=== PATIENT | male | born 1950 | race Caucasian/White ===

== ENCOUNTER 2019-10-26 23:14 | Inpatient (IN) | payer MEDICARE, OTHER ==
[~2019-10-26] VITALS: Ht 185.4 cm; Wt 100.2 kg
--- NOTE | 2019-10-26 23:30 | NUR ---
GPS ADMISSION NOTE: [facility] PT. ARRIVED AT 2330 VIA [facility] W/ 2 EMT ESCORTS. PT. ADMITTED ON A 5150 HOLD FOR DTS AND GD. PER HOLD PATIENT HAS BEEN ACTING BIZARRE AND AGGRESSIVE TOWARDS MEDICAL STAFF, CONFUSED AT TIMES, NOT MAKING ANY SENSE, HAS NO REGARD OF HIS OWN PERSONAL SAFETY, AND RAMBLING ABOUT AND DYING. 5150 WAS REVIEWED AND DOCUMENTATION IN 5150 HOLD APPEAR TO REFLECT PATIENT. UPON FACE TO FACE ASSESSMENT, PT. WAS CONFUSED, RAMBLING, AND NOT MAKING ANY SENSE. NEEDS REDIRECTION. PATIENT IS CURRENTLY SLEEPING IN BED, NO COMPLAINTS OF PAIN, NO DISTRESS NOTED. PT. BREATHING IS UNLABORED WITH EQUAL RISE AND FALL OF CHEST. PT. IS A/O X2 ON ROOM AIR. NO NEEDS AT THIS TIME. DENIES SI/HI. PATIENT SIGNED PAPERWORK AND WAS ADVISED OF HOLD AND PATIENT RIGHTS BOOKLET GIVEN. UNDER PSYCHIATRIC CARE OF WILL AND MEDICAL CARE OF GURJIT. BELONGINGS WERE INVENTORIED AND CHECKED FOR CONTRABAND. ALL CONTRABAND REMOVED. SKIN ASSESSMENT AND MRSA COMPLETED. PT. EDUCATED ON USE OF CALL MONTOYA. SIDE RAILS UP X2 FOR SAFETY. BED LOCKED, LOW POSITION. WILL CONTINUE TO MONITOR PT. FOR SAFETY AND BEHAVIOR.
[2019-10-27] MEDS ORDERED: TEMAZEPAM 7.5 MG CAPSULE PO PRN
[2019-10-27] MEDS ORDERED: MAG HYDROX/AL HYDROX/SIMETH 30 ML UDC PO PRN
[2019-10-27] MEDS ORDERED: ACETAMINOPHEN 325 MG TABLET PO PRN
[2019-10-27] MEDS ORDERED: MAGNESIUM HYDROXIDE 30 ML UDC PO PRN
[2019-10-27] MEDS ORDERED: BLOOD SUGAR DIAGNOSTIC 1 EACH STRIP IN ONE
[2019-10-27] MEDS ORDERED: LORAZEPAM 0.5 MG TABLET PO PRN
[2019-10-27] MEDS ORDERED: AMLO10TA7 PO (00:13)
[2019-10-27] MEDS ORDERED: METO50TA16 PO (00:13)
[2019-10-27] MEDS ORDERED: ENOX40DI SQ (00:13)
[2019-10-27] MEDS ORDERED: ONDA4TAB5 PO (00:13)
[2019-10-27] MEDS ORDERED: VALS320T2 PO (00:13)
[2019-10-27] MEDS ORDERED: IPRA0.2S49 NEB (00:13)
[2019-10-27] MEDS ORDERED: DOCU100C36 PO (00:13)
[2019-10-27] MEDS ORDERED: GABA-532 PO (00:13)
[2019-10-27] MEDS ORDERED: NAPH1POW3 PO (00:13)
[2019-10-27] MEDS ORDERED: SENN-18 PO (00:13)
[2019-10-27] MEDS ORDERED: ARIP20TA4 PO (00:13)
[2019-10-27] MEDS ORDERED: FAMO20TA8 PO (00:13)
[2019-10-27] MEDS ORDERED: CLOP75TA15 PO (00:13)
[2019-10-27] MEDS ORDERED: ATOR80TA PO (00:13)
[2019-10-27] MEDS ORDERED: HYDR-4354 PO (00:13)
[2019-10-27 02:21] VITALS: BP 129/82
--- NOTE | 2019-10-27 06:01 | NUR ---
GPS RN NOTE CALLED [facility] @ [phone] FOR MED RECON AND SAID THEY WILL PAGE DR. CAGLE. WAITING FOR HIS CALL
--- NOTE | 2019-10-27 06:41 | NUR ---
GPS RN NOTE: DR. CAGLE CALLED UNIT AND ASKED HIM TO HAVE THE MEDICATION RECONCILED.
[2019-10-27 07:23] LABS: CHOLESTEROL 81 mg/dL (<200); HDL CHOLESTEROL 35 mg/dL (40-60); LDL 34 mg/dL (0-99); TRIGLYCERIDES 48 mg/dL (30-150)
[2019-10-27 07:30] LABS: ALBUMIN 3.7 g/dL (3.4-5.0); BILIRUBIN,TOTAL 0.6 mg/dL (0.2-1.0); CALCIUM, SERUM 9.6 mg/dL (8.5-10.1); CREATININE 1.1 mg/dL (0.6-1.3); POTASSIUM 3.3 mmol/L (3.5-5.1); TOTAL PROTEIN, SERUM 7.5 g/dL (6.4-8.2)
[2019-10-27 08:00] VITALS: BP 140/65
[2019-10-27] MEDS: CLOPIDOGREL BISULFATE 75 MG TABLET PO SCH (10:39)
[2019-10-27] MEDS: AMLODIPINE BESYLATE 10 MG TABLET PO SCH (10:39)
[2019-10-27] MEDS ORDERED: ONDANSETRON 4 MG TAB.RAPDIS PO PRN (11:00)
[2019-10-27] MEDS: POTASSIUM CHLORIDE 20 MEQ TAB.PRT.SR PO ONE ×2 (11:23→11:33)
--- NOTE | 2019-10-27 11:33 | NUR ---
RN NOTE: PT REFUSED PO POTASSIUM REPLACEMENT. EDUCATED PT ON IMPORTANCE OF POTASSIUM FOR HIS HEART. PT CONT TO REFUSE X 3 WILL OFFER REPLACEMENT AT A LATER TIME.
[2019-10-27] MEDS: GABAPENTIN 100 MG CAPSULE PO SCH ×2 (12:08→17:16)
[2019-10-27] MEDS ORDERED: GABAPENTIN 300 MG CAPSULE PO SCH (13:00)
[2019-10-27] MEDS: IPRATROPIUM NEB FS 0.5 MG/2.5 ML AMPUL.NEB NEB SCH ×2 (15:42→21:04)
[2019-10-27 16:00] VITALS: BP 118/77
[2019-10-27] MEDS: DOCUSATE SODIUM 100 MG CAPSULE PO SCH (17:15)
[2019-10-27] MEDS: ARIPIPRAZOLE 5 MG TABLET PO SCH (17:15)
[2019-10-27] MEDS: SENNOSIDES 8.6 MG TABLET PO SCH (17:15)
[2019-10-27] MEDS: HYDROCODONE/APAP 10/325MG 1 EA TABLET PO SCH (17:17)
[2019-10-27] MEDS: FAMOTIDINE (20 MG) 20 MG TABLET PO SCH (17:17)
[2019-10-27] MEDS: METOPROLOL TARTRATE 50 MG TABLET PO SCH (17:18)
[2019-10-27 20:14] VITALS: BP 128/86
--- NOTE | 2019-10-27 20:47 | NUR ---
RN NOTES PATIENT COMPLAINING OF A MILD HEADACHE, REQUESTING MEDICATION. ADMINISTERED PRN PO TYLENOL 650mg ORDERED. WILL CONTINUE TO MONITOR PATIENT.
[2019-10-27] MEDS ORDERED: ATORVASTATIN 40 MG TABLET PO SCH (22:00)
[2019-10-28] MEDS: IPRATROPIUM NEB FS 0.5 MG/2.5 ML AMPUL.NEB NEB SCH ×4 (01:30→13:52)
[2019-10-28 08:00] VITALS: BP 132/76
[2019-10-28] MEDS: DOCUSATE SODIUM 100 MG CAPSULE PO SCH (08:13)
[2019-10-28] MEDS: METOPROLOL TARTRATE 50 MG TABLET PO SCH (08:14)
[2019-10-28] MEDS: HYDROCODONE/APAP 10/325MG 1 EA TABLET PO SCH (08:14)
[2019-10-28] MEDS: CLOPIDOGREL BISULFATE 75 MG TABLET PO SCH (08:15)
[2019-10-28] MEDS: AMLODIPINE BESYLATE 10 MG TABLET PO SCH (08:15)
[2019-10-28] MEDS: GABAPENTIN 100 MG CAPSULE PO SCH ×2 (08:15→12:17)
[2019-10-28] MEDS: FAMOTIDINE (20 MG) 20 MG TABLET PO SCH (08:16)
[2019-10-28] MEDS: ARIPIPRAZOLE 5 MG TABLET PO SCH (08:16)
[2019-10-28] MEDS: SENNOSIDES 8.6 MG TABLET PO SCH (08:16)
[2019-10-28] MEDS ORDERED: VALSARTAN 80 MG TABLET PO SCH (09:00)
--- NOTE | 2019-10-28 10:14 | NUR ---
FAMILY CONTACT: CARMELA contacted pts [place] [facility] [phone] for collateral information and discharge/treatment planning. Pt did not provide collateral information she stated she wanted pt discharged as soon as possible and stated that pt does not belong in a psych unit. Per medical report pt has been diagnosed with Schizophrenia in 1999 and per this is pts first psychiatric hospitalization. CARMELA stated she would consult with MD and call her back with an update.
--- NOTE | 2019-10-28 10:30 | NUR ---
INITIAL DISCHARGE PLAN: Pt will be discharged home [address] [place] [address]. Per [facility] [phone] she wishes for pt to be discharged as soon as possible. CARMELA will help form a safe and proper discharge in collaboration with .
--- NOTE | 2019-10-28 10:34 | NUR ---
PSYCHOSOCIAL NOTE: CARMELA and met with pt at bedside, pt is alert and oriented x2, to self and place. Pt appears confused and disoriented. Pt states he is in a hospital in [place] and that it is year 2017. Pt states that he wishes to go home and feels safe at home. Pt also states that he has been sleeping well and taking his medication. Pt is med complaint and appears with mumbled speech and confused thought content. Pt was placed on a psychiatric hold for danger to self and grave disability. Per psychiatric hold, pt began acting bizarre while at [facility] and began acting aggressive towards staff. Currently pt does not display bizarre or aggressive behavior. CARMELA and spoke with pts who states she wishes to pick pt up on this preset day. MD will initiate discharge and break pts 5150 hold due to pt not meeting criteria.
--- NOTE | 2019-10-28 10:53 | NUR ---
DISCHARGE NOTE: Pt will be discharged at 4:00pm via private vehicle home to [facility] [place] [address]. Pts [place] [facility] [phone] will pick pt up. Pts mood is calm and cooperative with congruent affect. Pt denied visual/auditory hallucinations and denied suicidal/homicidal ideation. Pt is alert and oriented x2, to self and place and is ambulatory. Pt is appropriately dressed and groomed. Pt denied drug/alcohol history or current use. Pt will follow up with Psychiatrist: Dr. Raúl Fischer Address: [address] [place] [address] On Monday11/04/19 at 11:00am. Clinicals were faxed to . Pt will also follow up with Chief Environmental Commitment Officer: Dr. Tristen Gilmore Address: [address] [facility] [address], [place] [address] . The multidisciplinary exit care form was done, printed, signed, and given to the patient.
[2019-10-28 16:00] VITALS: BP 100/56
--- NOTE | 2019-10-28 16:10 | NUR ---
CUSTOMER ASSOCIATE NOTE: 69 YEAR OLD MALE DISCHARGED POLY IN STABLE CONDITION. COMPLIANT WITH MEDICATIONS, COOPERATIVE WITH TREATMENT PLANS. PATIENT DENIES SI/HI AND INSTRUCTED TO GO TO THE CLOSEST ER IF DEVELOPING SI/HI. BEHAVIOR IMPROVED, PSYCHIATRIC TREATMENT PLANS MET, MEDICAL TREATMENT PLANS DEFERRED FOR CONTINUAL MONITORING. EDUCATED PT AND ABOUT AFTER CARE PLAN AND COPY PROVIDED. RETURNED PERSONAL BELONGINGS TO PATIENT. MEDICATIONS RECONCILED WITH LOLA KING NP AND DR. SOLIS PATIENT UNABLE TO SIGN DISCHARGE PAPERWORK DUE TO MENTAL STATUS. , LEIGH, SIGNED RESPONSIBILITY OF CARE FORM. WOUND PICTURES DOCUMENTED IN THE CHART. PT ID BAND REMOVED. PATIENT LEFT THE UNIT VIA WHEELCHAIR AT 1610.
== END 2019-10-28 16:10 | disposition home or self-care (01) | DRG 885 ==
LOC: GPS 23:14
PROVIDERS: ADMIT Psychiatry & Neurology Psychosomatic Medicine; ATTEND Nurse Practitioner Acute Care
DX: F25.9 Schizoaffective disorder, unspecified (principal); I11.0 Hypertensive heart disease with heart failure; G93.41 Metabolic encephalopathy; E87.6 Hypokalemia; G89.29 Other chronic pain; Z86.73 Personal history of transient ischemic attack (TIA), and cerebral infarction without residual deficits; E78.5 Hyperlipidemia, unspecified; E66.9 Obesity, unspecified; I50.9 Heart failure, unspecified; Z79.01 Long term (current) use of anticoagulants; Z79.899 Other long term (current) drug therapy; Z79.51 Long term (current) use of inhaled steroids; F29 Unspecified psychosis not due to a substance or known physiological condition; Z73.6 Limitation of activities due to disability; Z95.0 Presence of cardiac pacemaker; Z68.29 Body mass index [BMI] 29.0-29.9, adult; G31.84 Mild cognitive impairment of uncertain or unknown etiology
CPT/HCPCS: 36415; 80053-TC; 80061-TC; 82962-TC; 87081-TC; 94799-TC; 97116-TC; 97530-TC